=== PATIENT | male | born 1995 | race Caucasian/White ===

== ENCOUNTER 2016-03-10 18:38 | Emergency (ER) | payer OTHER ==
--- NOTE | 2016-03-10 22:22 | DIAGNOSTIC IMAGING REPORT ---
PROCEDURE: CT HEAD WITHOUT CONTRAST INDICATION: Left sided headache, initial encounter TECHNIQUE: Noncontrast axial images with sagittal and coronal reformations. COMPARISON: None. FINDINGS: Sulci, ventricular system, and brain parenchyma are normal. No evidence of acute intracranial process. Visualized mastoids and sinuses are clear. IMPRESSION: 1. Negative non-enhanced head CT. 2. Findings discussed with Criss Lo at 10:20 p.m., [place] Standard Time
--- NOTE | 2016-03-10 23:27 | ED CLINICAL REPORT ---
Clinical Report - Physicians/Mid Levels [facility] [address] [place] [address] 03/10/2016 18:40 Patient: KAYODE ALVARADO Time Seen: 21:31; initial patient contact, initial documentation, patient care assumed. Arrived- By private vehicle. Historian- patient. HISTORY OF PRESENT ILLNESS Chief Complaint: HEADACHE. This started about 3 days ago. It was abrupt in onset and has been intermittent and waxing/waning. It is described as similar to previous headaches and "pain". Located in the left parietal and left temporal region. No neck pain. Not located in the facial region. At its maximum, severity described as severe. When seen in the E.D., severity described as moderate and 8 / 10. Modifying factors: relieved by nothing. Not worsened by anything. No preceding symptoms, blurred vision, photophobia, associated nausea or numbness. No weakness or vomiting. No recent travel. Similar symptoms previously: None. Recent medical care: Not recently seen/assessed. REVIEW OF SYSTEMS No fever, sinus pressure, ear pain, sore throat or head injury. L upper tooth molar issues, broke a while back and broke again recently, hurts with certain food temps. All systems otherwise negative, except as recorded above. PAST HISTORY Negative. SOCIAL HISTORY Light tobacco smoker. Occasional alcohol use. History of heavy drug use: marijuana. Recently used drugs yesterday. No recent travel. Is a local resident. FAMILY HISTORY Negative. ADDITIONAL NOTES The nursing notes have been reviewed with agreement regarding the chief complaint, HPI, ROS, PMH and patient medications and allergies. PHYSICAL EXAM Vital Signs: 03/10/2016 19:44 BP: 146/79. HR: 67. RR: 15. O2 saturation: 99%. Temp: 98.2 F. Pain level now: 4/10. Have been reviewed as normal and appear to be correct. Appearance: Alert. No acute distress. Eyes: Pupils equal, round and reactive to light. Eyes inspection not normal. (horizontal nystagmus, L). (L molar #3 broken off with mild dental caries). ENT: Ears normal. Nose normal. Pharynx normal. Neck: Abnormal inspection. Mild left preauricular lymphadenopathy present. Neck supple. CVS: Normal heart rate and rhythm. Heart sounds normal. Pulses normal. Respiratory: No respiratory distress. Breath sounds normal. Back: Normal inspection. Skin: Skin warm and dry. Normal skin color. No rash. Normal skin turgor. Extremities: Extremities exhibit normal ROM. No lower extremity edema. Neuro: Oriented X 3. Alert. Mood/affect normal. Speech normal. Cranial nerves normal (as tested). No cerebellar findings. No motor deficit. No sensory deficit. LABS, X-RAYS, AND EKG CT Head: No acute disease. (IMPRESSION: 1. Negative non-enhanced head CT. 2. Findings discussed with Criss Lo at 10:20 p.m., [facility] Time Electronically Final signed by:Ashok Casiano MD 03/10/2016 10:21:51 PM). The study was interpreted by the radiologist and discussed with the radiologist. PROGRESS AND PROCEDURES Patient counseled in person regarding the patient's stable condition, test results and diagnosis. 23:27. Differential Diagnosis: I considered migraine, cluster headache, subarachnoid hemorrhage, intracranial bleed, vascular malformation, cerebral aneurysm, vascular dissection, vasculitis, temporal arteritis, encephalitis, brain abscess, sinusitis, dental etiology, influenza, viral syndrome, carbon monoxide exposure, analgesic abuse and hypoglycemia as a possible cause of headache in this patient. This is a partial list of diagnoses considered. Other possible considerations: substance abuse. Above considerations are based on history, physical exam and other information. Differential diagnosis was discussed with patient. Disposition: Discharged home in good and improved condition (23:27). Condition: good and stable. CLINICAL IMPRESSION Acute, poorly controlled headache. Dental caries (localized) INSTRUCTIONS Warnings: GENERAL WARNINGS: Return or contact your physician immediately if your condition worsens or changes unexpectedly, if not improving as expected, or if other problems arise. SPECIFICALLY, return if you develop fever, vomiting, numbness, weakness, difficulty thinking, visual disturbances, fainting or extreme fatigue. Prescription Medications: Ultram 50 mg tablets: take 1-2 orally every 6 hours as needed for pain. Dispense twenty (20). No refills. Substitution is permissible. Erythromycin Ethylsuccinate 400 mg: take 1 tablet orally every 8 hours for 10 days. No refill. Follow-up: Follow up with a dentist in about three days even if well. Call for an appointment. Summary of care provided to patient. Understanding of the discharge instructions verbalized by patient. (Electronically signed by Criss Lo A.R.N.P. 03/11/2016 0:12)
--- NOTE | 2016-03-10 23:27 | ED NURSING NOTES ---
Clinical Report - Nurses [facility] [place] [address] 03/10/2016 18:40 Patient: KAYODE ALVARADO TRIAGE Triage time 19:45. Acuity: LEVEL 3. Chief Complaint: (Left orthodoxy pain). 19:49. Alert. SEPSIS SCREEN: Sepsis Screen. Negative (no infection suspected/documented). DI COMA SCORE: [place] Coma Scale: 15- eyes open spontaneously (4); best verbal response- oriented x 4 (5); best motor response- obeys commands (6). --19:49 Reginald Echavarria R.N. 19:44 03/10/16. BP: 146/79. HR: 67. RR: 15. O2 saturation: 99% on room air. Temp: 98.2 F. Pain level now: 06/11. --19:49 Reginald Echavarria R.N. Weight: 27.2 kg stated. Height/Length: 72 inches Per Patient. BMI: 8.1. --19:47 Reginald Echavarria R.N. Medications None. --19:46 Reginald Echavarria R.N. Medication/allergy information source: the patient. --19:49 Reginald Echavarria R.N. Allergies Cillins. --19:47 Reginald Echavarria R.N. History Arrived by private vehicle. Historian: patient. Accompanied by family. Primary physician (None). This started 2 weeks ago. ( Patient reports left orthodoxy pain that has been constant for the last 2 weeks, then last pain became much worse and kept him up for hrs). 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 PAST MEDICAL HX: Immunizations: up-to-date. SOCIAL HX: Never smoker. Occasional alcohol use. History of drug use. (daily). No recent travel. No infectious disease exposure. No known contact with a sick individual. ABUSE ASSESSMENT: No report of abuse. FALL RISK ASSESSMENT: Fall risk assessment completed. No fall risk identified. NUTRITIONAL RISK ASSESSMENT: The nutritional risk assessment revealed no deficiencies. FUNCTIONAL ASSESSMENT: Functional assessment: no impairments noted. LEARNING NEEDS ASSESSMENT: The learning needs assessment revealed no barriers. SKIN INTEGRITY ASSESSMENT: Skin integrity risk assessment completed. No skin integrity risk identified. --19:49 Reginald Echavarria R.N. ADDITIONAL SURGERIES: no known surgeries. Interventions ID band on patient. To treatment room. --19:49 Reginald Echavarria R.N. PHYSICAL ASSESSMENT ( Pt is having pain in the left orthodoxy 3/10 right now. Pt denies any vision changes. Pt denies any headaches in the left side before. Pt last took tylenol at 1500. Pt denies any n/v.). GENERAL / NEURO / PSYCH: Alert. Oriented X 4. Appears in no acute distress. Speech within normal limits. HEENT: No facial asymmetry noted. Pupils equal, round and reactive to light. RESPIRATORY: Respirations not labored. Breath sounds within normal limits. CVS: Capillary refill less than 2 seconds. GI / : Abdomen soft and nontender. SKIN: Skin is warm and dry. --20:40 Killian Martinez R.N. NURSING PROGRESS NOTES The plan of care for this patient has been created. Patient gowned. Head of bed elevated. Two patient identifiers checked. Call light placed in reach. Side rails up x 1. Bed placed in lowest position. Brakes of chair on. --20:41 Killian Martinez R.N. 20:40 03/10/16. BP: 131/70. HR: 66. RR: 15. O2 saturation: 100%. Pain level now 3/10. --20:41 Killian Martinez R.N. 23:07 03/10/2016 Toradol (Ketorolac Tromethamine) IM 60 mg given. Given in the left anterior lateral thigh. Allergies verified and confirmed 5 rights. --23:07 Killian Martinez R.N. DISPOSITION / DISCHARGE Departure time: 23:33. Condition at departure: improved. ( headache has improved). No learning barriers present. Discharge instructions provided and reviewed with the patient. Reviewed warnings. Reviewed medication(s). Treatments reviewed. Reviewed referral to a dentist. Patient verbalized understanding. Written instructions provided in Iraqi. The patient was discharged by the physician. He was discharged home and accompanied by parent. He left the Emergency Department ambulatory and via private vehicle. Parent driving. --23:34 Killian Martinez R.N. 23:32 03/10/16. BP: 130/76. HR: 58. RR: 15. O2 saturation: 100%. Pain level now 04/13. --23:34 Killian Martinez R.N. Locked/Released at 03/10/2016 23:34 by Killian Martinez R.N.
--- NOTE | 2016-03-10 23:27 | ED ORDER SUMMARY ---
..... Patient: LINDA ALVARADOKeira Cornell OrderSheet [facility] VisitID: [id number] [place] [address] 21y, M Registration Date/Time: 03/10/2016 ORDER SHEET Weight: 27.2 kg (stated) Allergies: Cillins GENERAL ORDERS: CT Head wo Cont Urgent (22:02 03/10/2016 HBivens A.R.N.P.) (Ack 22:04 TBergley) (22:10 RFay) MEDICATION ORDERS: Toradol IM 60 mg (NOW) (22:59 03/10/2016 HBivens A.R.N.P.) (23:07 Ajwivandana R.N.) IV FLUIDS: ORDER SHEET NOTES: [Electronically signed by Killian Martinez R.N. (23:34 03/10/2016)] [Electronically signed by Criss LoR.N.PJabari (00:12 03/11/2016)] [Electronically locked/signed by Killian Martinez R.N. (23:34 03/10/2016)]
--- NOTE | 2016-03-10 23:27 | ED NURSING NOTES ---
Clinical Report - Nurses [facility] [place] [address] 03/10/2016 18:40 Patient: KAYODE ALVARADO TRIAGE Triage time 19:45. Acuity: LEVEL 3. Chief Complaint: (Left islam pain). 19:49. Alert. SEPSIS SCREEN: Sepsis Screen. Negative (no infection suspected/documented). DI COMA SCORE: [place] Coma Scale: 15- eyes open spontaneously (4); best verbal response- oriented x 4 (5); best motor response- obeys commands (6). --19:49 Reginald Echavarria R.N. 19:44 03/10/16. BP: 146/79. HR: 67. RR: 15. O2 saturation: 99% on room air. Temp: 98.2 F. Pain level now: 06/11. --19:49 Reginald Echavarria R.N. Weight: 27.2 kg stated. Height/Length: 72 inches Per Patient. BMI: 8.1. --19:47 Reginald Echavarria R.N. Medications None. --19:46 Reginald Echavarria R.N. Medication/allergy information source: the patient. --19:49 Reginald Echavarria R.N. Allergies Cillins. --19:47 Reginald Echavarria R.N. History Arrived by private vehicle. Historian: patient. Accompanied by family. Primary physician (None). This started 2 weeks ago. ( Patient reports left islam pain that has been constant for the last 2 weeks, then last pain became much worse and kept him up for hrs). 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 PAST MEDICAL HX: Immunizations: up-to-date. SOCIAL HX: Never smoker. Occasional alcohol use. History of drug use. (daily). No recent travel. No infectious disease exposure. No known contact with a sick individual. ABUSE ASSESSMENT: No report of abuse. FALL RISK ASSESSMENT: Fall risk assessment completed. No fall risk identified. NUTRITIONAL RISK ASSESSMENT: The nutritional risk assessment revealed no deficiencies. FUNCTIONAL ASSESSMENT: Functional assessment: no impairments noted. LEARNING NEEDS ASSESSMENT: The learning needs assessment revealed no barriers. SKIN INTEGRITY ASSESSMENT: Skin integrity risk assessment completed. No skin integrity risk identified. --19:49 Reginald Echavarria R.N. ADDITIONAL SURGERIES: no known surgeries. Interventions ID band on patient. To treatment room. --19:49 Reginald Echavarria R.N. PHYSICAL ASSESSMENT ( Pt is having pain in the left islam 3/10 right now. Pt denies any vision changes. Pt denies any headaches in the left side before. Pt last took tylenol at 1500. Pt denies any n/v.). GENERAL / NEURO / PSYCH: Alert. Oriented X 4. Appears in no acute distress. Speech within normal limits. HEENT: No facial asymmetry noted. Pupils equal, round and reactive to light. RESPIRATORY: Respirations not labored. Breath sounds within normal limits. CVS: Capillary refill less than 2 seconds. GI / : Abdomen soft and nontender. SKIN: Skin is warm and dry. --20:40 Killian Martinez R.N. NURSING PROGRESS NOTES The plan of care for this patient has been created. Patient gowned. Head of bed elevated. Two patient identifiers checked. Call light placed in reach. Side rails up x 1. Bed placed in lowest position. Brakes of chair on. --20:41 Killian Martinez R.N. 20:40 03/10/16. BP: 131/70. HR: 66. RR: 15. O2 saturation: 100%. Pain level now 3/10. --20:41 Killian Martinez R.N. 23:07 03/10/2016 Toradol (Ketorolac Tromethamine) IM 60 mg given. Given in the left anterior lateral thigh. Allergies verified and confirmed 5 rights. --23:07 Killian Martinez R.N. DISPOSITION / DISCHARGE Departure time: 23:33. Condition at departure: improved. ( headache has improved). No learning barriers present. Discharge instructions provided and reviewed with the patient. Reviewed warnings. Reviewed medication(s). Treatments reviewed. Reviewed referral to a dentist. Patient verbalized understanding. Written instructions provided in Nigerien. The patient was discharged by the physician. He was discharged home and accompanied by parent. He left the Emergency Department ambulatory and via private vehicle. Parent driving. --23:34 Killian Martinez R.N. 23:32 03/10/16. BP: 130/76. HR: 58. RR: 15. O2 saturation: 100%. Pain level now 04/13. --23:34 Killian Martinez R.N. Locked/Released at 03/10/2016 23:34 by Killian Martinez R.N.
--- NOTE | 2016-03-10 23:27 | ED ORDER SUMMARY ---
..... Patient: LINDA ALVARADOKeira Cornell OrderSheet [facility] VisitID: [id number] [place] [address] 21y, M Registration Date/Time: 03/10/2016 ORDER SHEET Weight: 27.2 kg (stated) Allergies: Cillins GENERAL ORDERS: CT Head wo Cont Urgent (22:02 03/10/2016 HBivens A.R.N.P.) (Ack 22:04 TBergley) (22:10 RFay) MEDICATION ORDERS: Toradol IM 60 mg (NOW) (22:59 03/10/2016 HBivens A.R.N.P.) (23:07 Ajwivandana R.N.) IV FLUIDS: ORDER SHEET NOTES: [Electronically signed by Killian Martinez R.N. (23:34 03/10/2016)] [Electronically signed by Criss LoR.N.PJabari (00:12 03/11/2016)] [Electronically locked/signed by Killian Martinez R.N. (23:34 03/10/2016)]
--- NOTE | 2016-03-11 00:14 | ED MAR SUMMARY ---
..... Medication Administration Record [facility] [address] [place] [address] Patient: KAYODE ALVARADO Visit ID: [id number] 21y, M Weight: 27.2 kg Height/Length: 72 in BMI: 8.1 ALLERGIES: Cillins Given 23:07 03/10/2016 Killian Martinez R.N. Medication Administered: TORADOL [IM] (KETOROLAC TROMETHAMINE), Dose: 60 mg IM. Medication Ordered: Toradol IM 60 mg (NOW).
--- NOTE | 2016-03-11 00:14 | ED MED RECONCILIATION SUMMARY ---
Patient: KAYODE ALVARADO Medication Reconciliation Report [facility] VisitID: [id number] [place] [address] 21y, M Registration Date/Time: 03/10/2016 Weight: 27.2 kg Height/Length: 72 in. BMI: 8.1 ALLERGIES: Cillins The patient's Home Medications are listed below: NONE. The source(s) of the original Home Medication information: patient The following Medications were given to the patient in the Emergency Department: Toradol [IM] IM 60 mg, administered: 03/10/2016 11:07:00 PM The following Medications were prescribed to the patient: Ultram 50 mg tablets: take 1-2 orally every 6 hours as needed for pain. Dispense twenty (20). No refills. Substitution is permissible. -- Criss Lo, Rajani.R.N.P. Erythromycin Ethylsuccinate 400 mg: take 1 tablet orally every 8 hours for 10 days. No refill. -- Criss Lo A.R.N.P.
--- NOTE | 2016-03-11 00:14 | ED MED RECONCILIATION SUMMARY ---
Patient: KAYODE ALVARADO Medication Reconciliation Report [facility] VisitID: [id number] [place] [address] 21y, M Registration Date/Time: 03/10/2016 Weight: 27.2 kg Height/Length: 72 in. BMI: 8.1 ALLERGIES: Cillins The patient's Home Medications are listed below: NONE. The source(s) of the original Home Medication information: patient The following Medications were given to the patient in the Emergency Department: Toradol [IM] IM 60 mg, administered: 03/10/2016 11:07:00 PM The following Medications were prescribed to the patient: Ultram 50 mg tablets: take 1-2 orally every 6 hours as needed for pain. Dispense twenty (20). No refills. Substitution is permissible. -- rCiss Lo, Rajani.R.N.P. Erythromycin Ethylsuccinate 400 mg: take 1 tablet orally every 8 hours for 10 days. No refill. -- Criss Lo A.R.N.P.
--- NOTE | 2016-03-11 00:14 | ED MAR SUMMARY ---
..... Medication Administration Record [facility] [address] [place] [address] Patient: KAYODE ALVARADO Visit ID: [id number] 21y, M Weight: 27.2 kg Height/Length: 72 in BMI: 8.1 ALLERGIES: Cillins Given 23:07 03/10/2016 Killian Martinez R.N. Medication Administered: TORADOL [IM] (KETOROLAC TROMETHAMINE), Dose: 60 mg IM. Medication Ordered: Toradol IM 60 mg (NOW).
--- NOTE | 2016-03-11 00:14 | ED DISCHARGE INSTRUCTIONS ---
Patient: KAYODE ALVARADO General Instructions [facility] VisitID: [id number] [place] [address] 21y, M Registration Date/Time: 03/10/2016 Acute, poorly controlled headache. Dental caries (localized) INSTRUCTIONS Warnings: GENERAL WARNINGS: Return or contact your physician immediately if your condition worsens or changes unexpectedly, if not improving as expected, or if other problems arise. SPECIFICALLY, return if you develop fever, vomiting, numbness, weakness, difficulty thinking, visual disturbances, fainting or extreme fatigue. Prescription Medications: Ultram 50 mg tablets: take 1-2 orally every 6 hours as needed for pain. Dispense twenty (20). No refills. Substitution is permissible. Erythromycin Ethylsuccinate 400 mg: take 1 tablet orally every 8 hours for 10 days. No refill. Follow-up: Follow up with a dentist in about three days even if well. Call for an appointment. Summary of care provided to patient. Understanding of the discharge instructions verbalized by patient. ADDITIONAL INFORMATION Headache [Unspecified] The cause of your headache today is not clear, but it does not appear to be the sign of any serious illness. Under stress, some people tense the muscles of their shoulder, neck and scalp without knowing it. If this condition lasts long enough, a TENSION HEADACHE can occur. A MIGRAINE HEADACHE is caused by changes in blood flow to the brain. A migraine attack may be triggered by emotional stress, hormone changes during the menstrual cycle, oral contraceptives, alcohol use, certain foods containing tyramine, eye strain, weather changes, missing meals, lack of sleep or oversleeping. Other causes of headache include a viral illness with high fever, head injury with concussion, sinus, ear or throat infection, dental pain and TMJ (jaw joint) pain. More serious but less common causes of headache include stroke, brain hemorrhage, brain tumor, meningitis and encephalitis. Home Care: If you were given pain medicine for this headache, do not drive yourself home. Arrange for a ride, instead. When you get home, try to sleep. You should feel much better when you wake up. Apply heat to the back of your neck to relieve neck muscle spasm. Migraine headaches may respond best to an ice pack on the forehead or at the base of the skull. If you are having nausea or vomiting, follow a light diet until your headache is relieved. If you have a migraine type headache, use sunglasses when in the daylight or around bright indoor lighting until symptoms improve. Bright glaring light can worsen this kind of headache. Follow Up with your doctor if the headache is not better within the next 24 hours. If you have frequent headaches you should discuss a treatment plan with your primary care doctor. By being aware of the earliest signs of headache, and starting treatment right away, you may be able to stop the pain yourself. Get Prompt Medical Attention if any of the following occur: Worsening of your head pain or no improvement within 24 hours Repeated vomiting (unable to keep liquids down) Fever of 100.4F (38C) or higher, or as directed by your healthcare provider Stiff neck Extreme drowsiness, confusion or fainting Dizziness, vertigo (dizziness with spinning sensation) Weakness of an arm or leg or one side of the face Difficulty with speech or vision Dental Cavity A dental cavity is a pit or crater in the enamel surface of the tooth. This exposes the sensitive inner layer of the tooth and causes pain. If untreated, the cavity will get bigger and may cause an infection or abscess in the root of the tooth. An infection in the tooth is a much more serious problem and may require a root canal or removal of the entire tooth. The tooth pain may be made worse by drinking hot or cold fluids. It may spread from the tooth to the ear or jaw on the same side. Home Care: Avoid hot and cold foods, and liquids since your tooth may be sensitive to temperature changes. If your tooth is chipped or cracked, or if there is a large open cavity, apply OIL OF CLOVES (available [id number] in drug stores) directly to the tooth to reduce pain. Some pharmacies carry an [id number] "toothache kit." This contains oil of cloves and a paste, which can be applied over the exposed tooth to decrease sensitivity. An ice pack on your jaw over the sore area may help to reduce pain. You may use acetaminophen (Tylenol) or ibuprofen (Motrin, Advil) to control pain, unless another pain medicine was prescribed. [ NOTE: If you have liver disease or ever had a stomach ulcer, talk with your doctor before using these medicines.] If you have signs of an infection, an antibiotic will be given. Take it as directed. Follow-Up with your dentist as directed. Although your pain may go away with the treatment given, only a dentist can fully evaluate and treat this problem to prevent further tooth damage. Get Prompt Medical Attention if any of the following occur: Redness or swelling of the face Pain worsens or spreads to the neck Fever over 100.5 F (38C) Unusual drowsiness; headache or stiff neck; weakness or fainting Pus drains from the tooth or gum Difficulty swallowing or breathing Tramadol Hydrochloride Oral tablet What is this medicine? TRAMADOL (TRA ma dole) is a pain reliever. It is used to treat moderate to severe pain in adults. How should I use this medicine? Take this medicine by mouth with a full glass of water. Follow the directions on the prescription label. If the medicine upsets your stomach, take it with food or milk. Do not take more medicine than you are told to take. Talk to your tape transferrer regarding the use of this medicine in children. Special care may be needed. What side effects may I notice from receiving this medicine? Side effects that you should report to your doctor or health day care center director as soon as possible: allergic reactions like skin rash, itching or hives, swelling of the face, lips, or tongue breathing difficulties, wheezing confusion itching light headedness or fainting spells redness, blistering, peeling or loosening of the skin, including inside the mouth seizures Side effects that usually do not require medical attention (report to your doctor or health day care center director if they continue or are bothersome): constipation dizziness drowsiness headache nausea, vomiting What may interact with this medicine? Do not take this medicine with any of the following medications: MAOIs like Carbex, Eldepryl, Marplan, Nardil, and Parnate This medicine may also interact with the following medications: alcohol or medicines that contain alcohol antihistamines benzodiazepines bupropion carbamazepine or oxcarbazepine clozapine cyclobenzaprine digoxin furazolidone linezolid medicines for depression, anxiety, or psychotic disturbances medicines for migraine headache like almotriptan, eletriptan, frovatriptan, naratriptan, rizatriptan, sumatriptan, zolmitriptan medicines for pain like pentazocine, buprenorphine, butorphanol, meperidine, nalbuphine, and propoxyphene medicines for sleep muscle relaxants naltrexone phenobarbital phenothiazines like perphenazine, thioridazine, chlorpromazine, mesoridazine, fluphenazine, prochlorperazine, promazine, and trifluoperazine procarbazine warfarin What if I miss a dose? If you miss a dose, take it as soon as you can. If it is almost time for your next dose, take only that dose. Do not take double or extra doses. Where should I keep my medicine? Keep out of the reach of children. Store at room temperature between 15 and 30 degrees C (59 and 86 degrees F). Keep container tightly closed. Throw away any unused medicine after the expiration date. What should I tell my health care provider before I take this medicine? They need to know if you have any of these conditions: brain tumor depression drug abuse or addiction head injury if you frequently drink alcohol containing drinks kidney disease or trouble passing urine liver disease lung disease, asthma, or breathing problems seizures or epilepsy suicidal thoughts, plans, or attempt; a previous suicide attempt by you or a family member an unusual or allergic reaction to tramadol, codeine, other medicines, foods, dyes, or preservatives or trying to get breast-feeding What should I watch for while using this medicine? Tell your doctor or health day care center director if your pain does not go away, if it gets worse, or if you have new or a different type of pain. You may develop tolerance to the medicine. Tolerance means that you will need a higher dose of the medicine for pain relief. Tolerance is normal and is expected if you take this medicine for a long time. Do not suddenly stop taking your medicine because you may develop a severe reaction. Your body becomes used to the medicine. This does NOT mean you are addicted. Addiction is a behavior related to getting and using a drug for a non-medical reason. If you have pain, you have a medical reason to take pain medicine. Your doctor will tell you how much medicine to take. If your doctor wants you to stop the medicine, the dose will be slowly lowered over time to avoid any side effects. You may get drowsy or dizzy. Do not drive, use machinery, or do anything that needs mental alertness until you know how this medicine affects you. Do not stand or sit up quickly, especially if you are an older patient. This reduces the risk of dizzy or fainting spells. Alcohol can increase or decrease the effects of this medicine. Avoid alcoholic drinks. You may have constipation. Try to have a bowel movement at least every 2 to 3 days. If you do not have a bowel movement for 3 days, call your doctor or health day care center director. Your mouth may get dry. Chewing sugarless gum or sucking hard candy, and drinking plenty of water may help. Contact your doctor if the problem does not go away or is severe. Erythromycin Ethylsuccinate Oral suspension What is this medicine? ERYTHROMYCIN (er tomás manish KOO sin) is a macrolide antibiotic. It is used to treat certain kinds of bacterial infections. It will not work for colds, flu, or other viral infections. How should I use this medicine? Take this medicine by mouth. Follow the directions on the prescription label. Shake well before using. Use a specially marked spoon or dropper to measure each dose. Ask your pharmacist if you do not have one. Household spoons are not accurate. You can take it with or without food. If it upsets your stomach, take it with food. Take your medicine at regular intervals. Do not take your medicine more often than directed. Take all of your medicine as directed even if you think your are better. Do not skip doses or stop your medicine early. Do not stop taking except on your doctor's advice. Talk to your tape transferrer regarding the use of this medicine in children. Special care may be needed. What side effects may I notice from receiving this medicine? Side effects that you should report to your doctor or health day care center director as soon as possible: allergic reactions like skin rash, itching or hives, swelling of the face, lips, or tongue dark urine difficulty breathing hearing loss irregular heartbeat or chest pain redness, blistering, peeling or loosening of the skin, including inside the mouth severe or watery diarrhea unusually weak or tired yellowing of eyes or skin Side effects that usually do not require medical attention (report to your doctor or health day care center director if they continue or are bothersome): diarrhea loss of appetite nausea, vomiting stomach pain What may interact with this medicine? Do not take this medicine with any of the following medications: chloroquine cisapride droperidol eplerenone ergotamine and dihydroergotamine methadone other antibiotics, like grepafloxacin or sparfloxacin sirolimus some medicines for cholesterol like atorvastatin, cerivastatin, lovastatin, and simvastatin some medicines for heart rhythm problems some medicines for psychotic disturbances vinblastine red yeast rice This medicine may also interact with the following medications: alfentanil bromocriptine carbamazepine cyclosporine digoxin some medicines for anxiety or difficulty sleeping phenytoin terfenadine theophylline valproate warfarin What if I miss a dose? If you miss a dose, take it as soon as you can. If it is almost time for your next dose, take only that dose. Do not take double or extra doses. Where should I keep my medicine? Keep out of the reach of children. Follow the directions for storage that are provided by the pharmacist. What should I tell my health care provider before I take this medicine? They need to know if you have any of these conditions: diabetes liver disease myasthenia gravis an unusual or allergic reaction to erythromycin, other medicines, foods, dyes, or preservatives or trying to get breast-feeding What should I watch for while using this medicine? Tell your doctor or health day care center director if your symptoms do not improve or if they get worse. Do not treat diarrhea with over the counter products. Contact your doctor if you have diarrhea that lasts more than 2 days or if it is severe and watery. You have been given the following additional information: Headache, Unspecified Dental Cavity Tramadol Hydrochloride Oral tablet Erythromycin Ethylsuccinate Oral suspension (Electronically signed by Criss Lo A.R.N.P. 03/11/2016 0:12)
== END 2016-03-10 23:33 | disposition home or self-care (01) ==
LOC: ED SRH 18:38
DX: R51 Headache (principal); K02.9 Dental caries, unspecified; F17.210 Nicotine dependence, cigarettes, uncomplicated; Z88.0 Allergy status to penicillin